=== PATIENT | male | born 1980 | race African-American/Black ===

== ENCOUNTER 2016-12-02 14:49 | Emergency (ER) | payer SELFPAY ==
[2016-12-02 14:56] VITALS: BP 132/76
[2016-12-02] MEDS ORDERED: METOCLOPRAMIDE HCL ORAL SOLN 10 MG/10 ML UDCUP PO ONE (15:07)
[2016-12-02] MEDS ORDERED: LIDOCAINE 2% VISCOUS SOLN 20 ML UDCUP PO ONE (15:07)
[2016-12-02] MEDS ORDERED: MAG HYDROX/AL HYDROX/SIMETH SUSP 30 ML UDCUP PO PRN (15:07)
--- NOTE | 2016-12-02 15:15 | ER Document Report ---
ED Medical Screen (RME) - General Chief Complaint: Abdominal Pain Stated Complaint: ABDOMINAL PAIN Time Seen by Provider: 12/02/16 15:03 Mode of Arrival: Ambulatory Information source: Patient TRAVEL OUTSIDE OF THE [place] IN LAST 30 DAYS: No - HPI Onset: Other - 4 DAYS Onset/Duration: Gradual Context: Patient had onset of lower abdominal pain 4 days ago, subsequently was seen at another emergency department and given naproxen for pain relief. Days later he said the pain became more predominant in the upper abdomen (points to epigastrium) and lower abdominal pain has now resolved. Quality of pain: Dull Severity: Mild Associated Symptoms: Nausea - SLIGHT, OCCASIONAL. denies: Diarrhea Exacerbated by: Denies Relieved by: Food - Related Data Allergies/Adverse Reactions: venlafaxine [Venlafaxine] Allergy (Intermediate, Verified 12/02/16 14:54) Past Medical History - General Information source: Patient - Past Medical History Cardiac Medical History: Reports: None Pulmonary Medical History: Reports: None Endocrine Medical History: Reports: None. Denies: Hx Diabetes Mellitus Type 1, Hx Diabetes Mellitus Type 2 Renal/ Medical History: Denies: Hx Peritoneal Dialysis Malignancy Medical History: Reports None GI Medical History: Reports: Hx Ulcer - bleeding ulcer, Hx Endoscopy - About 6 months ago. Was put on Nexium after the procedure. Psychiatric Medical History: Reports: Hx Depression Surgical Hx: Negative - Immunizations Immunizations up to date: Yes Hx Diphtheria, Pertussis, Tetanus Vaccination: Yes Review of Systems - Review of Systems Constitutional: No symptoms reported EENT: No symptoms reported Cardiovascular: No symptoms reported Respiratory: No symptoms reported Gastrointestinal: See HPI Genitourinary: No symptoms reported Musculoskeletal: No symptoms reported Skin: No symptoms reported Neurological/Psychological: No symptoms reported Physical Exam - Vital signs Vitals: Temp Pulse Resp BP Pulse Ox 97.8 F 63 16 132/76 H 100 12/02/16 14:54 12/02/16 14:54 12/02/16 14:54 12/02/16 14:54 12/02/16 14:54 Interpretation: Normal - General General appearance: Appears well, Alert In distress: None - HEENT Head: Normocephalic Eyes: Normal Conjunctiva: Normal Ears: Normal Nasal: Normal Mouth/Lips: Normal Mucous membranes: Normal - Respiratory Respiratory status: No respiratory distress - Cardiovascular Rhythm: Regular - Abdominal Inspection: Normal Distension: No distension Bowel sounds: Normal Tenderness: Tender - SLIGHT, EPIGASTRIC - Extremities General upper extremity: Normal inspection General lower extremity: Normal inspection - Neurological Neuro grossly intact: Yes - Skin Skin Temperature: Warm Skin Moisture: Dry Skin Color: Normal Skin Turgor: Elastic Course - Re-evaluation Re-evalutation: 12/02/16 15:45 Patient reports epigastric pain is improved after GI cocktail. - Vital Signs Vital signs: Temp Pulse Resp BP Pulse Ox 97.8 F 63 16 132/76 H 100 12/02/16 14:54 12/02/16 14:54 12/02/16 14:54 12/02/16 14:54 12/02/16 14:54 Doctor's Discharge - Discharge Clinical Impression: Gastritis Qualifiers: Gastritis type: unspecified gastritis Chronicity: acute Gastritis bleeding: without bleeding Qualified Code(s): K29.00 - Acute gastritis without bleeding Condition: Stable Disposition: HOME, SELF-CARE Instructions: Gastritis ([facility]), Acid-Suppressing Medication ([facility]), Antacid Therapy ([facility]) Additional Instructions: BLAND DIET, AVOID GREASY OR SPICY FOODS. STOP TAKING NAPROXEN. TAKE AN ACID- BLOCKING MEDICATION, SUCH TAGAMET, ZANTAC, OR PEPCID DAILY UNTIL IMPROVED. TAKE A DOSE OF ANTACID (MAALOX, MYLANTA, TUMS, OR ROLAIDS) EVERY HOUR IF PAIN SEEMS TO WORSEN. FOLLOW UP IF NOT BETTER IN 2-3 DAYS, OR SOONER IF WORSE ANY TIME.
== END 2016-12-02 15:45 | disposition home or self-care (01) ==
LOC: ER 14:49
DX: K29.00 Acute gastritis without bleeding (principal); R10.13 Epigastric pain
CPT/HCPCS: 99283; J3490

== ENCOUNTER 2016-12-24 12:33 | Emergency (ER) | payer SELFPAY ==
--- NOTE | 2016-12-24 13:40 | ER Document Report ---
ED Medical Screen (RME) - General Chief Complaint: Groin Pain Stated Complaint: GROIN,BACK PAIN Time Seen by Provider: 12/24/16 13:39 TRAVEL OUTSIDE OF THE [place] IN LAST 30 DAYS: No - HPI Notes: 12/24/16 13:40 Nonspecific bilateral groin pain ongoing for 2days - Related Data Allergies/Adverse Reactions: venlafaxine [Venlafaxine] Allergy (Intermediate, Verified 12/24/16 12:46) Past Medical History Endocrine Medical History: Denies: Hx Diabetes Mellitus Type 1, Hx Diabetes Mellitus Type 2 Renal/ Medical History: Denies: Hx Peritoneal Dialysis GI Medical History: Reports: Hx Ulcer - bleeding ulcer, Hx Endoscopy - About 6 months ago. Was put on Nexium after the procedure. Psychiatric Medical History: Reports: Hx Depression - Immunizations Immunizations up to date: Yes Hx Diphtheria, Pertussis, Tetanus Vaccination: Yes Review of Systems - Review of Systems Constitutional: Other - Groin pain Physical Exam - Vital signs Vitals: Temp Pulse Resp BP Pulse Ox 98.4 F 71 14 130/76 H 99 12/24/16 12:47 12/24/16 12:47 12/24/16 12:47 12/24/16 12:47 12/24/16 12:47 - Respiratory Respiratory status: No respiratory distress Chest status: Nontender Breath sounds: Normal Chest palpation: Normal Course - Vital Signs Vital signs: Temp Pulse Resp BP Pulse Ox 98.4 F 71 14 130/76 H 99 12/24/16 12:47 12/24/16 12:47 12/24/16 12:47 12/24/16 12:47 12/24/16 12:47
[2016-12-24 14:15] LABS: APPEARANCE,URINE CLEAR; BILIRUBIN,URINE NEGATIVE (NEGATIVE); GLUCOSE, URINE NEGATIVE (NEGATIVE); KETONES,URINE NEGATIVE (NEGATIVE); LEUKOCYTE ESTERASE,URINE NEGATIVE (NEGATIVE); NITRITE,URINE NEGATIVE (NEGATIVE); PROTEIN,URINE NEGATIVE (NEGATIVE); URINE SPECIFIC GRAVITY 1.009; UROBILINOGEN,URINE NEGATIVE mg/dL (<2.0)
--- NOTE | 2016-12-24 14:35 | ER Document Report ---
ED GI/ - General Chief Complaint: Groin Pain Stated Complaint: GROIN,BACK PAIN Time Seen by Provider: 12/24/16 13:39 Mode of Arrival: Ambulatory Information source: Patient Notes: 36-year-old male presents to ED for bilateral groin pain. He has enlarged lymph nodes in bilateral groin area. He states he had some pain with movement but no pain with urination. TRAVEL OUTSIDE OF THE [place] IN LAST 30 DAYS: No - HPI Patient complains to provider of: Groin pain Onset: Other - 2days Timing/Duration: Gradual Quality of pain: Sharp Severity at maximum: Moderate Severity in ED: Moderate Pain Level: 4 Location: Pelvis - Bilateral. No: Left testicle, Right testicle Associated symptoms: Other - Groin pain with lymphadenopathy Exacerbated by: Movement Relieved by: Denies Similar symptoms previously: No Recently seen / treated by doctor: No - Related Data Allergies/Adverse Reactions: venlafaxine [Venlafaxine] Allergy (Intermediate, Verified 12/24/16 12:46) Past Medical History - General Information source: Patient - Social History Smoking Status: Never Smoker Cigarette use (# per day): No Chew tobacco use (# tins/day): No Smoking Education Provided: No Frequency of alcohol use: Social Drug Abuse: Marijuana Occupation: [employer] business Lives with: Alone Family History: Arthritis, CVA, DM, Hypertension. denies: CAD, COPD, Hyperlipidemia, Malignancy, Thyroid Disfunction Patient has suicidal ideation: No Patient has homicidal ideation: No - Past Medical History Cardiac Medical History: Reports: None Pulmonary Medical History: Reports: None EENT Medical History: Reports: None Neurological Medical History: Reports: None Endocrine Medical History: Reports: None Renal/ Medical History: Reports: None Malignancy Medical History: Reports None GI Medical History: Reports: Hx Ulcer - bleeding ulcer, Hx Colonoscopy, Hx Endoscopy - Was put on Nexium after the procedure. Musculoskeltal Medical History: Reports None Skin Medical History: Reports None Psychiatric Medical History: Reports: Hx Depression Traumatic Medical History: Reports: None Infectious Medical History: Reports: None Surgical Hx: Negative Past Surgical History: Reports: None - Immunizations Immunizations up to date: Yes Hx Diphtheria, Pertussis, Tetanus Vaccination: Yes Review of Systems - Review of Systems Constitutional: No symptoms reported EENT: No symptoms reported Cardiovascular: No symptoms reported Respiratory: No symptoms reported Gastrointestinal: No symptoms reported Genitourinary: No symptoms reported Male Genitourinary: Other - Bilateral groin pain lymphadenopathy. denies: Erectile dysfunction, Testicular pain, Penile discharge Musculoskeletal: No symptoms reported Skin: No symptoms reported Hematologic/Lymphatic: No symptoms reported Neurological/Psychological: No symptoms reported -: Yes All other systems reviewed and negative Physical Exam - Vital signs Vitals: Temp Pulse Resp BP Pulse Ox 98.4 F 71 14 130/76 H 99 12/24/16 12:47 12/24/16 12:47 12/24/16 12:47 12/24/16 12:47 12/24/16 12:47 Interpretation: Normal - General General appearance: Appears well, Alert - HEENT Head: Normocephalic, Atraumatic Eyes: Normal Pupils: PERRL - Respiratory Respiratory status: No respiratory distress Chest status: Nontender Breath sounds: Normal Chest palpation: Normal - Cardiovascular Rhythm: Regular Heart sounds: Normal auscultation Murmur: No - Abdominal Inspection: Normal Distension: No distension Bowel sounds: Normal Tenderness: Nontender Organomegaly: No organomegaly - Genitourinary Tenderness: Nontender Cremasteric reflex: Normal Scrotum: Normal Notes: Minimal lymphadenopathy bilaterally tenderness bilateral requiring no tenderness to scrotum. - Back Back: Normal, Nontender - Extremities General upper extremity: Normal inspection, Nontender, Normal color, Normal ROM , Normal temperature General lower extremity: Normal inspection, Nontender, Normal color, Normal ROM , Normal temperature, Normal weight bearing. No: Radha's sign - Neurological Neuro grossly intact: Yes Cognition: Normal Orientation: AAOx4 [place] Coma Scale Eye Opening: Spontaneous [place] Coma Scale Verbal: Oriented [place] Coma Scale Motor: Obeys Commands [place] Coma Scale Total: 15 Speech: Normal Motor strength normal: LUE, RUE, LLE, RLE Sensory: Normal - Psychological Associated symptoms: Normal affect, Normal mood - Skin Skin Temperature: Warm Skin Moisture: Dry Skin Color: Normal Course - Re-evaluation Re-evalutation: 12/24/16 16:57 Groin ultrasound and labs discussed with Dr. Braun. Patient will be discharged home today. RPR will not be run today so patient will be called if RPR is positive for treatment. Patient is to follow up with primary md to monitor lymphadenopathy. - Vital Signs Vital signs: Temp Pulse Resp BP Pulse Ox 98.4 F 71 14 130/76 H 99 12/24/16 12:47 12/24/16 12:47 12/24/16 12:47 12/24/16 12:47 12/24/16 12:47 - Laboratory Result Diagrams: 12/24/16 16:15 Laboratory results interpreted by me: 12/24/16 16:15 Hgb 13.2 L MCHC 31.8 L - Diagnostic Test Radiology reviewed: Image reviewed, Reports reviewed Discharge - Discharge Clinical Impression: lymphadenopathy bilateral groin Condition: Stable Disposition: HOME, SELF-CARE Instructions: Family Physicians / Practices Additional Instructions: Lymphadenopathy You have enlargement of lymph glands, called lymphadenopathy. Lymph glands filter tissue fluids. They help to fight infection. Most of the time, enlarged lymph glands are not serious. Lymph glands may react to a viral or bacterial infection by becoming swollen and painful. When the infection goes away, the glands shrink. Sometimes a lymph gland will remain enlarged for a long time after an infection. Occasionally, a lymph gland may be overwhelmed by infection and form an abscess. If an enlarged lymph gland has signs that are suspicious for tumor, the doctor will recommend a biopsy. A suspicious gland usually is NOT painful, grows very slowly, and is rock-hard to touch. See the doctor or return if there is increasing swelling and redness, high fever, difficulty breathing, or any other change for the worse. Your ultrasound showed several enlarged lymph nodes the largest one 2.2 cm. Urinalysis and your GC and Chlamydia were negative. An RPR which test for syphilis with sent and you will be called if that is positive and you will need to return to the ED for antibiotics. You need to follow-up with a primary doctor next week to reassess the lymph nodes. The RPR is negative will need further evaluation to find out why your lymph nodes are enlarged. FOLLOW-UP CARE: If you have been referred to a physician for follow-up care, call the physician s office for an appointment as you were instructed or within the next two days. If you experience worsening or a significant change in your symptoms, notify the physician immediately or return to the Emergency Department at any time for re-evaluation. Forms: Elevated Blood Pressure
[2016-12-24 15:41] LABS: CHLAM PCR NOT DETECTED (NOT DETECT)
--- NOTE | 2016-12-24 15:44 | RADIOLOGY REPORT (SQ) ---
EXAM DESCRIPTION: U/S SCROTUM W/DOPPLER COMPLETED DATE/TIME: 12/24/2016 3:31 pm REASON FOR STUDY: groin pain COMPARISON: None. TECHNIQUE: Static and realtime shelton scale imaging of the scrotum and testes. Selected color Doppler and spectral images recorded to document blood flow. LIMITATIONS: None. FINDINGS: RIGHT: TESTICLE: Normal size. Normal echotexture. Normal blood flow. No mass. EPIDIDYMIS: Normal. HYDROCELE OR VARICOCELE: No. HERNIA OR EXTRA-TESTICULAR MASS: No. OTHER: Multiple lymph nodes. Largest 1.8 cm. LEFT: TESTICLE: Normal size. Normal echotexture. Normal blood flow. No mass. EPIDIDYMIS: Normal. HYDROCELE OR VARICOCELE: No. HERNIA OR EXTRA-TESTICULAR MASS: No. OTHER: Multiple lymph nodes. Largest 2.2 cm. IMPRESSION: NORMAL SCROTAL ULTRASOUND. NO EVIDENCE OF TESTICULAR MASS OR TORSION. Nonspecific bilateral lymph nodes. TECHNICAL DOCUMENTATION: JOB ID: [id number] [employer]- All Rights Reserved
[2016-12-24 16:30] LABS: ABSOLUTE BASOPHILS # (AUTO) 0.1 10^3/uL (0.0-0.2); ABSOLUTE EOSINOPHILS # (AUTO) 0.2 10^3/uL (0.0-0.6); ABSOLUTE LYMPHOCYTES (AUTO) 1.8 10^3/uL (0.5-4.7); ABSOLUTE MONOCYTES (AUTO) 0.5 10^3/uL (0.1-1.4); ABSOLUTE NEUT (AUTO) 3.1 10^3/uL (1.7-8.2); BASOPHILS % (AUTO) 1.6 % (0-2); HEMATOCRIT 41.4 % (37.9-51.0); HEMOGLOBIN 13.2 g/dL (13.5-17.0); HGB HCT DIFFERENCE -1.8; LYMPHOCYTES % (AUTO) 31.9 % (13-45); MEAN CORPUSCULAR HEMOGLOBIN 28.7 pg (27.0-33.4); MEAN CORPUSCULAR HGB CONC 31.8 g/dL (32.0-36.0); MEAN CORPUSCULAR VOLUME 90 fl (80-97); MONOCYTES % (AUTO) 8.4 % (3-13); RED BLOOD COUNT 4.59 10^6/uL (4.35-5.55); RED CELL DISTRIBUTION WIDTH 13.4 % (11.5-14.0); SEGMENTED NEUTROPHILS % (AUTO) 55.1 % (42-78); WHITE BLOOD COUNT 5.6 10^3/uL (4.0-10.5)
[2016-12-24 17:06] VITALS: BP 133/76
== END 2016-12-24 17:34 | disposition home or self-care (01) ==
LOC: ER 12:33
DX: R59.0 Localized enlarged lymph nodes (principal); R10.30 Lower abdominal pain, unspecified
CPT/HCPCS: 36415; 76870; 81001; 85025; 86592; 87491; 87591; 93976; 99284

== ENCOUNTER 2017-03-13 15:00 | Emergency (ER) | payer SELFPAY ==
--- NOTE | 2017-03-13 15:34 | ER Document Report ---
ED Medical Screen (RME) - General Chief Complaint: Abdominal Pain Stated Complaint: ABDOMINAL PAIN Time Seen by Provider: 03/13/17 15:30 Mode of Arrival: Ambulatory Information source: Patient TRAVEL OUTSIDE OF THE [place] IN LAST 30 DAYS: No - HPI Patient complains to provider of: Abdominal pain Notes: 03/13/17 15:35 Patient is a 37-year-old male presenting to the emergency room complaining of upper abdominal pain since yesterday, denies nausea or vomiting, states he took a laxative to have a bowel movement today which he did, denies any fever or chills, no urinary symptoms - Related Data Allergies/Adverse Reactions: venlafaxine [Venlafaxine] Allergy (Intermediate, Verified 03/13/17 15:16) Past Medical History Endocrine Medical History: Denies: Hx Diabetes Mellitus Type 1, Hx Diabetes Mellitus Type 2 Renal/ Medical History: Denies: Hx Peritoneal Dialysis GI Medical History: Reports: Hx Ulcer - bleeding ulcer, Hx Colonoscopy, Hx Endoscopy - Was put on Nexium after the procedure. Psychiatric Medical History: Reports: Hx Depression - Immunizations Immunizations up to date: Yes Hx Diphtheria, Pertussis, Tetanus Vaccination: Yes Physical Exam - Vital signs Vitals: Temp Pulse Resp BP Pulse Ox 97.9 F 72 18 142/94 H 99 03/13/17 15:15 03/13/17 15:15 03/13/17 15:15 03/13/17 15:15 03/13/17 15:15 Course - Vital Signs Vital signs: Temp Pulse Resp BP Pulse Ox 97.9 F 72 18 142/94 H 99 03/13/17 15:15 03/13/17 15:15 03/13/17 15:15 03/13/17 15:15 03/13/17 15:15
[2017-03-13 16:09] LABS: ABSOLUTE EOSINOPHILS # (AUTO) 0.1 10^3/uL (0.0-0.6); ABSOLUTE LYMPHOCYTES (AUTO) 1.7 10^3/uL (0.5-4.7); ABSOLUTE MONOCYTES (AUTO) 0.4 10^3/uL (0.1-1.4); ABSOLUTE NEUT (AUTO) 3.4 10^3/uL (1.7-8.2); BASOPHILS % (AUTO) 0.7 % (0-2); EOSINOPHILS % (AUTO) 0.9 % (0-6); HEMATOCRIT 43.4 % (37.9-51.0); HGB HCT DIFFERENCE -1.4; LYMPHOCYTES % (AUTO) 30.2 % (13-45); MEAN CORPUSCULAR HEMOGLOBIN 29.2 pg (27.0-33.4); MEAN CORPUSCULAR HGB CONC 32.1 g/dL (32.0-36.0); MEAN CORPUSCULAR VOLUME 91 fl (80-97); MONOCYTES % (AUTO) 6.6 % (3-13); RED BLOOD COUNT 4.79 10^6/uL (4.35-5.55); RED CELL DISTRIBUTION WIDTH 13.6 % (11.5-14.0); SEGMENTED NEUTROPHILS % (AUTO) 61.6 % (42-78); WHITE BLOOD COUNT 5.6 10^3/uL (4.0-10.5)
[2017-03-13 16:12] LABS: APPEARANCE,URINE CLEAR; BILIRUBIN,URINE NEGATIVE (NEGATIVE); GLUCOSE, URINE NEGATIVE (NEGATIVE); KETONES,URINE NEGATIVE (NEGATIVE); LEUKOCYTE ESTERASE,URINE NEGATIVE (NEGATIVE); NITRITE,URINE NEGATIVE (NEGATIVE); PROTEIN,URINE NEGATIVE (NEGATIVE); URINE SPECIFIC GRAVITY 1.006; UROBILINOGEN,URINE NEGATIVE mg/dL (<2.0)
[2017-03-13 16:16] LABS: ALANINE AMINOTRANSFERASE 67 U/L (21-72); ALBUMIN 5.2 g/dL (3.5-5.0); ALKALINE PHOSPHATASE 55 U/L (38-126); ANION GAP 13 (5-19); ASPARTATE AMINO TRANSFERASE 33 U/L (17-59); BILIRUBIN,DIRECT 0.3 mg/dL (0.0-0.4); BILIRUBIN,TOTAL 0.7 mg/dL (0.2-1.3); BLOOD UREA NITROGEN 11 mg/dL (7-20); CALCIUM 10.2 mg/dL (8.4-10.2); CARBON DIOXIDE 26 mmol/L (22-30); CHLORIDE 105 mmol/L (98-107); CREATININE RESULT 1.23 mg/dL (0.52-1.25); GLUCOSE 93 mg/dL (75-110); LIPASE 63.1 U/L (23-300); POTASSIUM 4.1 mmol/L (3.6-5.0); SODIUM 144.4 mmol/L (137-145); TOTAL PROTEIN 8.2 g/dL (6.3-8.2)
[2017-03-13] MEDS ORDERED: LIDOCAINE 2% VISCOUS SOLN 20 ML UDCUP PO ONE (19:17)
[2017-03-13] MEDS ORDERED: MAG HYDROX/AL HYDROX/SIMETH SUSP 30 ML UDCUP PO ONE (19:17)
--- NOTE | 2017-03-13 19:18 | ER Document Report ---
ED GI/ - General Chief Complaint: Abdominal Pain Stated Complaint: ABDOMINAL PAIN Time Seen by Provider: 03/13/17 15:30 Mode of Arrival: Ambulatory Information source: Patient Notes: Patient presents complaining of upper abdominal pain that started yesterday. Patient denies any nausea or vomiting. Last bowel movement was yesterday and was normal. Patient states that he feels as though he is bloated. Patient states that he does have a history of acid reflux for which he treats with Beano. Patient does state he has seen a casting machine service operator in the past and has a history of ulcers whenever he was a child. TRAVEL OUTSIDE OF THE [place] IN LAST 30 DAYS: No - HPI Patient complains to provider of: Abdominal pain. No: Vomiting Onset: Yesterday Timing/Duration: Persistent Quality of pain: Burning Pain Level: 3 Location: Epigastric Associated symptoms: denies: Chest pain, Diarrhea, Loss of appetite, Nausea, Urinary hesitancy, Urinary frequency, Urinary retention, Urinary urgency, Vomiting Exacerbated by: Food Relieved by: Denies Similar symptoms previously: Yes Recently seen / treated by doctor: No - Related Data Allergies/Adverse Reactions: venlafaxine [Venlafaxine] Allergy (Intermediate, Verified 03/13/17 15:16) Home Medications: Current Home Medications Acyclovir [Zovirax 200 mg Capsule] 1 cap PO BID 03/13/17 [History] Doxycycline Monohydrate [Doxycycline Monohydrate] 1 cap PO BID 03/13/17 [History ] Past Medical History - General Information source: Patient - Social History Smoking Status: Never Smoker Frequency of alcohol use: Occasional Drug Abuse: Marijuana Family History: Arthritis, CVA, DM, Hypertension. denies: CAD, COPD, Hyperlipidemia, Malignancy, Thyroid Disfunction Endocrine Medical History: Denies: Hx Diabetes Mellitus Type 1, Hx Diabetes Mellitus Type 2 Renal/ Medical History: Denies: Hx Peritoneal Dialysis GI Medical History: Reports: Hx Gastroesophageal Reflux Disease, Hx Ulcer - bleeding ulcer, Hx Colonoscopy, Hx Endoscopy - Was put on Nexium after the procedure. Psychiatric Medical History: Reports: Hx Depression Surgical Hx: Negative - Immunizations Immunizations up to date: Yes Hx Diphtheria, Pertussis, Tetanus Vaccination: Yes Review of Systems - Review of Systems Constitutional: No symptoms reported. denies: Fever EENT: No symptoms reported Cardiovascular: No symptoms reported. denies: Chest pain Respiratory: No symptoms reported. denies: Cough, Short of breath Gastrointestinal: Abdominal pain. denies: Diarrhea, Nausea, Vomiting Genitourinary: No symptoms reported. denies: Dysuria Male Genitourinary: No symptoms reported Musculoskeletal: No symptoms reported. denies: Back pain Skin: No symptoms reported Hematologic/Lymphatic: No symptoms reported Neurological/Psychological: No symptoms reported Physical Exam - Vital signs Vitals: Temp Pulse Resp BP Pulse Ox 97.9 F 72 18 142/94 H 99 03/13/17 15:15 03/13/17 15:15 03/13/17 15:15 03/13/17 15:15 03/13/17 15:15 - General General appearance: Appears well, Alert In distress: None - HEENT Head: Normocephalic, Atraumatic Eyes: Normal Conjunctiva: Normal Nasal: Normal Mouth/Lips: Normal Mucous membranes: Normal Pharynx: Normal Neck: Normal, Supple. No: Lymphadenopathy - Respiratory Respiratory status: No respiratory distress Chest status: Nontender Breath sounds: Normal. No: Rales, Rhonchi, Stridor, Wheezing Chest palpation: Normal - Cardiovascular Rhythm: Regular Heart sounds: S1 appreciated, S2 appreciated Murmur: No - Abdominal Inspection: Normal Distension: No distension Bowel sounds: Normal Tenderness: Tender - epigastric Organomegaly: No organomegaly - Back Back: Normal, Nontender. No: CVA tenderness - Extremities General upper extremity: Normal inspection, Normal ROM General lower extremity: Normal inspection, Normal ROM - Neurological Neuro grossly intact: Yes Cognition: Normal [place] Coma Scale Eye Opening: Spontaneous [place] Coma Scale Verbal: Oriented [place] Coma Scale Motor: Obeys Commands [place] Coma Scale Total: 15 - Psychological Associated symptoms: Normal affect, Normal mood - Skin Skin Temperature: Warm Skin Moisture: Dry Skin Color: Normal Course - Re-evaluation Re-evalutation: 03/13/17 20:05 Patient reports some improvement of his abdominal pain after GI cocktail. Discussed worsening signs or symptoms with patient that he should return immediately for. Patient verbalized understanding and agrees with plan of care. Patient presents with abdominal pain without signs of peritonitis or other life-threatening or serious etiology. Patient appears stable for discharge and has been instructed to return immediately if the symptoms worsen in any way, or in 8-12 hours if not improved for reevaluation. The patient has been instructed to return if the symptoms worsen or change in any way. 03/13/17 20:07 The patient has been informed that they may have pre-hypertension or hypertension based on a blood pressure reading in the emergency department. I recommend that patient call the primary care provider listed on their discharge instructions or a physician of their choice by this week to arrange follow-up for further evaluation of possible pre-hypertension or hypertension. - Vital Signs Vital signs: Temp Pulse Resp BP Pulse Ox 97.8 F 56 L 16 145/82 H 99 03/13/17 19:55 03/13/17 19:55 03/13/17 19:55 03/13/17 19:55 03/13/17 19:55 - Laboratory Result Diagrams: 03/13/17 15:40 03/13/17 15:40 Laboratory results interpreted by me: 03/13/17 03/13/17 15:40 15:40 Albumin 5.2 H Urine Blood SMALL H 03/13/17 20:05 Labs- Entire Visit 03/13/17 03/13/17 03/13/17 15:40 15:40 15:40 WBC 5.6 RBC 4.79 Hgb 14.0 Hct 43.4 MCV 91 MCH 29.2 MCHC 32.1 RDW 13.6 Plt Count 254 Seg Neutrophils % 61.6 Lymphocytes % 30.2 Monocytes % 6.6 Eosinophils % 0.9 Basophils % 0.7 Absolute Neutrophils 3.4 Absolute Lymphocytes 1.7 Absolute Monocytes 0.4 Absolute Eosinophils 0.1 Absolute Basophils 0.0 Sodium 144.4 Potassium 4.1 Chloride 105 Carbon Dioxide 26 Anion Gap 13 BUN 11 Creatinine 1.23 Est GFR ( Amer) > 60 Est GFR (Non-Af Amer) > 60 Glucose 93 Calcium 10.2 Total Bilirubin 0.7 Direct Bilirubin 0.3 Indirect Bilirubin Not Reportable Neonat Total Bilirubin Not Reportable AST 33 ALT 67 Alkaline Phosphatase 55 Total Protein 8.2 Albumin 5.2 H Lipase 63.1 Urine Color STRAW Urine Appearance CLEAR Urine pH 6.0 Ur Specific [place] 1.006 Urine Protein NEGATIVE Urine Glucose (UA) NEGATIVE Urine Ketones NEGATIVE Urine Blood SMALL H Urine Nitrite NEGATIVE Urine Bilirubin NEGATIVE Urine Urobilinogen NEGATIVE Ur Leukocyte Esterase NEGATIVE Urine WBC (Auto) 0 Urine RBC (Auto) 1 Urine Mucus (Auto) RARE Urine Ascorbic Acid NEGATIVE Discharge - Discharge Clinical Impression: Elevated blood pressure reading, Epigastric pain, Hx of gastroesophageal reflux (GERD) Condition: Stable Disposition: HOME, SELF-CARE Instructions: Abdominal Pain ([facility]), Reflux Disease (GERD) ([facility]) Additional Instructions: Return immediately for any new or worsening symptoms Followup with your primary care provider, call tomorrow to make a followup appointment Follow-up with your casting machine service operator for recheck Prescriptions: Omeprazole Magnesium [Prilosec Otc] 20 mg PO DAILY #15 tablet. Sucralfate [Carafate 1 gm Tablet] 1 gm PO ACHS #40 tablet Forms: Elevated Blood Pressure Referrals: MIHIR FLORES MD [ACTIVE STAFF] - Follow up as needed BRETT GOMEZ MD [EMERITUS] - Follow up as needed
[2017-03-13 20:31] VITALS: BP 145/82
== END 2017-03-13 20:20 | disposition home or self-care (01) ==
LOC: ER 15:00
DX: R10.13 Epigastric pain (principal); R03.0 Elevated blood-pressure reading, without diagnosis of hypertension; R10.9 Unspecified abdominal pain
CPT/HCPCS: 99284; 36415; 83690; 85025; 80053; 81001; J3490